=== PATIENT | male | born 1950 | race Hispanic/Latino ===

== ENCOUNTER → 2017-10-23 | Outpatient (CLI) | payer MEDICARE, MEDICAID | LOC: BICRAD 11:18 | PROVIDERS: ATTEND Family Medicine | DX: M25.512 Pain in left shoulder (principal); M19.012 Primary osteoarthritis, left shoulder ==

== ENCOUNTER 2018-08-11 07:36 | Outpatient (CLI) | payer MEDICARE, MEDICAID ==
--- NOTE | 2018-08-11 09:36 | ULT ---
BILATERAL CAROTID DUPLEX ULTRASOUND: DATE: 08/11/18 HISTORY: Atherosclerotic vascular disease, coronary artery disease, myocardial infarction. TECHNIQUE: Phillips scale ultrasound with color flow and spectral Doppler imaging of the extracranial carotid artery systems performed bilaterally. FINDINGS: There is a small amount of plaque formation in the common carotid arteries. The peak systolic velocity in the right ICA measures 78 cm/second with an end-diastolic velocity of 3 0 cm/second and a systolic ratio of 0.70. The peak systolic velocity in the left ICA measures 98 cm/second with an end-diastolic velocity of 35 cm/second and a systolic ratio of 0.86. Flow in both vertebral arteries remains antegrade. IMPRESSION: No evidence of hemodynamically significant stenosis. POS: [facility]
== END 2018-08-11 07:37 | disposition home or self-care (01) ==
LOC: BICULT 07:36
PROVIDERS: ATTEND Family Medicine
DX: I21.4 Non-ST elevation (NSTEMI) myocardial infarction (principal)
CPT/HCPCS: 93880

== ENCOUNTER 2018-12-08 14:34 | Outpatient (CLI) | payer MEDICARE, MEDICAID ==
--- NOTE | 2018-12-08 15:43 | RAD ---
RIGHT HAND THREE VIEWS: History: Pain. Arthritis. Comparison: None. FINDINGS: Moderate vascular calcifications. No acute fracture malalignment. Mild narrowing of the middle finger metacarpal phalangeal joint. No erosions or periostitis. There are calcifications in the dorsal aspect of the middle finger fifth interphalangeal joint. IMPRESSION: Chronic findings. No acute abnormality. POS: [facility]
== END 2018-12-08 14:35 | disposition home or self-care (01) ==
LOC: BICRAD 14:34
PROVIDERS: ATTEND Family Medicine
DX: M79.641 Pain in right hand (principal); M25.841 Other specified joint disorders, right hand

== ENCOUNTER 2020-01-10 09:39 | Outpatient (CLI) | payer MEDICARE, MEDICAID ==
--- NOTE | 2020-01-10 11:32 | RAD ---
LUMBAR SPINE 2 VIEWS: HISTORY: Low back pain. FINDINGS: Mild nonspecific wedging of the lower thoracic vertebrae at T10-T11, incompletely evaluated. Lumbar vertebrae maintain height and alignment with no evidence of acute compression. Degenerative spurring is seen from the lumbar vertebrae. Mild loss of disk space at L5-S1. Facet hypertrophy. Alignment is preserved. IMPRESSION: Moderate degenerative changes of the lumbar spine. POS: [facility]
--- NOTE | 2020-01-10 11:38 | RAD ---
SI JOINTS 3 VIEWS: HISTORY: Sacroiliac pain. FINDINGS: SI joints are normally maintained and appear symmetric. There is asymmetric sclerosis seen involving the superior left SI joint. Sclerosis is seen on both s ides of this joint. No definite fracture is seen; however, subtle sacral fracture may not be apparen t. Consider further evaluation with MRI of pelvis and sacrum. POS: [facility]
== END 2020-01-10 09:40 | disposition home or self-care (01) ==
LOC: BICRAD 09:39
PROVIDERS: ATTEND Family Medicine
DX: M54.5 Low back pain (principal); M53.3 Sacrococcygeal disorders, not elsewhere classified; M79.605 Pain in left leg; M47.816 Spondylosis without myelopathy or radiculopathy, lumbar region
CPT/HCPCS: 72100; 72202

== ENCOUNTER 2022-10-17 08:17 | Outpatient (CLI) | payer OTHER, MEDICAID | END 2022-10-17 08:18 | disposition home or self-care (01) | LOC: BICRAD 08:17 | PROVIDERS: ATTEND Family Medicine | DX: M46.1 Sacroiliitis, not elsewhere classified (principal); M54.9 Dorsalgia, unspecified; M47.816 Spondylosis without myelopathy or radiculopathy, lumbar region | CPT/HCPCS: 72100; 72202 ==

== ENCOUNTER 2022-10-30 07:35 | Outpatient (CLI) | payer OTHER, MEDICAID | END 2022-10-30 07:36 | disposition home or self-care (01) | LOC: SCSMRI 07:35 | PROVIDERS: ATTEND Family Medicine | DX: M47.26 Other spondylosis with radiculopathy, lumbar region (principal); M48.061 Spinal stenosis, lumbar region without neurogenic claudication; M48.07 Spinal stenosis, lumbosacral region; N28.1 Cyst of kidney, acquired | CPT/HCPCS: 72148 ==